=== PATIENT | female | born 1945 | race Caucasian/White ===

== ENCOUNTER 2017-10-19 15:41 | Emergency (ER) | payer MEDICARE, BC ==
[2017-10-19 16:32] VITALS: BP 137/82
--- NOTE | 2017-10-19 16:46 | UC ---
Throat Pain/Nasal Kristofer HPI - HPI Summary HPI Summary: Patient has 6 days of cough coughing so much that now her ribs and her chest wall hurts. He was to be worse at night no fevers. Symptoms seems to have been started as a head cold but is now all settled into her chest - History of Current Complaint Chief Complaint: UCRespiratory Stated Complaint: COUGH,CONGESTION Time Seen by Provider: 10/19/17 16:45 Hx Obtained From: Patient ?: No Onset/Duration: Gradual Onset, Lasting Days - 6 Severity: Moderate Cough: Nonproductive - Allergies/Home Medications Allergies/Adverse Reactions: Allergies Allergy/AdvReac Type Severity Reaction Status Date / Time Penicillins Allergy Swelling Verified 10/19/17 16:32 Sulfa (Sulfonamide Allergy Unknown Verified 10/19/17 16:32 Antibiotics) Reaction Details Home Medications: Home Medications Levocetirizine Dihydrochloride 5 mg PO 10/19/17 [History] Montelukast Sodium TAB* [Singulair 10 MG TAB*] 10 mg PO DAILY 10/19/17 [History Confirmed 10/19/17] Multivit with Calcium,Iron,Min [Multivitamins C-Pucaarp-Esug] 1 each PO [History] PMH/Surg Hx/FS Hx/Imm Hx Previously Healthy: Yes - Enviromental allergies - Surgical History Surgical History: Yes Surgery Procedure, Year, and Place: 2 breast bx, 2 surgical repairs of ankles, lap surgery for . - Family History Known Family History: Positive: None - Social History Occupation: Retired Lives: With Family Alcohol Use: None Substance Use Type: None Smoking Status (MU): Never Smoked Tobacco Review of Systems Constitutional: Negative Skin: Negative Eyes: Negative ENT: Negative Respiratory: Cough Cardiovascular: Chest Pain - chest wall pain with cough Gastrointestinal: Negative Genitourinary: Negative Motor: Negative Neurovascular: Negative Musculoskeletal: Negative Neurological: Negative Psychological: Negative Is Patient Immunocompromised?: No All Other Systems Reviewed And Are Negative: Yes Physical Exam Triage Information Reviewed: Yes Appearance: Well-Appearing, No Pain Distress, Well-Nourished Vital Signs: Initial Vital Signs Temp 96.6 F 10/19/17 16:28 Pulse 95 10/19/17 16:28 Resp 18 10/19/17 16:28 BP 137/82 10/19/17 16:28 Pulse Ox 96 10/19/17 16:28 Vital Signs Reviewed: Yes Eye Exam: Normal Eyes: Positive: Conjunctiva Clear ENT Exam: Normal ENT: Positive: Normal ENT inspection, Hearing grossly normal, Pharynx normal, Nasal congestion, TMs normal, Uvula midline. Negative: Tonsillar swelling, Tonsillar exudate, Trismus, Muffled voice, Hoarse voice, Dental tenderness, Sinus tenderness Dental Exam: Normal Neck exam: Normal Neck: Positive: Supple, Nontender, No Lymphadenopathy Respiratory Exam: Normal Respiratory: Positive: Chest non-tender, Lungs clear, Normal breath sounds, No respiratory distress, No accessory muscle use Cardiovascular Exam: Normal Cardiovascular: Positive: RRR, No Murmur, Pulses Normal, Brisk Capillary Refill Musculoskeletal Exam: Normal Musculoskeletal: Positive: Strength Intact, ROM Intact, No Edema Neurological Exam: Normal Neurological: Positive: Alert, Muscle Tone Normal Psychological Exam: Normal Skin Exam: Normal Diagnostics - Radiology No standard instances Xray Interpretation: Positive (See Comments) Radiology Interpretation Completed By: Radiologist - Patient Name: JUAN VICTORIA Medical Record#: [id number] Ordering Physician: Isa Hairston NP Acct.#: [id number] : 1945 Age: 71 Sex: F Location: [facility] Exam Date: 10/19/171656 ADM Status: [facility] Order Information: CHEST PA & LAT 2 VWS Accession Number: [id number] CPT: 61960 INDICATION: Productive cough. Chest pain. Shortness of breath. COMPARISON: No relevant prior exams available on the [facility] [place]. TECHNIQUE: Dual energy PA and routine lateral views of the chest were obtained. REPORT: Elevated lung volumes. No focal pulmonary lesion, compelling alveolar consolidation, pleural effusion, pneumothorax. The heart, pulmonary vasculature, and mediastinal contours are unremarkable. Unremarkable soft tissue contours and osseous structures. IMPRESSION: Stigmata of obstructive lung disease. No acute pulmonary or cardiac process evident. ___ <Electronically signed by Adolfo Ireland MD in OV> 10/19/17 3426 Dictated By: Adolfo Ireland MD Dictated Date/Time: 10/19/171726 Transcribed Date/Time: 10/19/171722 Copy to: CC:Isa Hairston QUILLER OPERATOR; Renato Sinha MD; Lizandro King MD Imaging - [facility] Imaging - [facility] Imaging - [facility] [address] [facility] [address] [place], [place] [id number] [place] [id number] [place] [id number] ph [phone]) ph [phone] ph ) 1 of 1 Throat Pain/Nasal Course/Dx - Course Assessment/Plan: albuterol flonase zithromax, increase fluids follow with pcp - Differential Dx/Diagnosis Provider Diagnoses: COPD by chest x-ray, Bronchitis Discharge - Sign-Out/Discharge Documenting (check all that apply): Discharge/Admit/Transfer - Discharge Plan Condition: Stable Disposition: HOME Prescriptions: Albuterol HFA INHALER* [Ventolin HFA Inhaler*] 1 - 2 puff INH Q6H PRN #1 mdi PRN Reason: Cough Azithromycin 100 MG/5 ML SUSP* [Zithromax SUSP* 100 MG/5 ML] 500 mg PO DAILY # 75 ml Azithromycin TAB* [Zithromax TAB (Z-CASEY) 250 mg #6 tabs] 2 tab PO .TODAY, THEN 1 DAILY #1 casey Fluticasone NASAL SPRAY 50MCG* [Flonase NASAL SPRAY 50MCG*] 2 spray BOTH NARES DAILY #1 btl Patient Education Materials: Acute Bronchitis (ED), How to Use a Metered-Dose Inhaler and a Spacer (ED) Referrals: Renato Sinha MD [Medical Doctor] - 1 Week - Billing Disposition and Condition Condition: STABLE Disposition: HOME
--- NOTE | 2017-10-19 17:31 | RAD ---
INDICATION: Productive cough. Chest pain. Shortness of breath. COMPARISON: No relevant prior exams available on the [facility] [place] for comparison. TECHNIQUE: Dual energy PA and routine lateral views of the chest were obtained. REPORT: Elevated lung volumes. No focal pulmonary lesion, compelling alveolar consolidation, pleural effusion, pneumothorax. The heart, pulmonary vasculature, and mediastinal contours are unremarkable. Unremarkable soft tissue contours and osseous structures. IMPRESSION: Stigmata of obstructive lung disease. No acute pulmonary or cardiac process evident.
== END 2017-10-19 18:15 | disposition home or self-care (01) ==
LOC: UCEAST 15:41
DX: J44.9 Chronic obstructive pulmonary disease, unspecified (principal); Z88.0 Allergy status to penicillin; Z88.2 Allergy status to sulfonamides
CPT/HCPCS: 71046; 99202; G0463

== ENCOUNTER 2018-09-10 10:33 | Emergency (ER) | payer MEDICARE, BC ==
--- NOTE | 2018-09-10 10:43 | UC ---
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 - History of Current Complaint Stated Complaint: LT WRIST INJURY Time Seen by Provider: 09/10/18 10:40 Hx Obtained From: Patient - Allergies/Home Medications Allergies/Adverse Reactions: Allergies Allergy/AdvReac Type Severity Reaction Status Date / Time Penicillins Allergy Swelling Verified 09/10/18 10:54 Sulfa (Sulfonamide Allergy Unknown Verified 09/10/18 10:54 Antibiotics) Reaction Details PMH/Surg Hx/FS Hx/Imm Hx - Additional Past Medical History Additional PMH: asthma Previously Healthy: Yes - Surgical History Surgical History: Yes Surgery Procedure, Year, and Place: 2 breast bx, 2 surgical repairs of ankles, lap surgery for . - Family History Known Family History: Positive: None - Social History Alcohol Use: None Substance Use Type: None Smoking Status (MU): Never Smoked Tobacco Review of Systems All Other Systems Reviewed And Are Negative: Yes Constitutional: Positive: Negative Skin: Positive: Negative Eyes: Positive: Negative ENT: Positive: Negative Respiratory: Positive: Negative Cardiovascular: Positive: Negative Gastrointestinal: Positive: Negative Genitourinary: Positive: Negative Motor: Positive: Negative Musculoskeletal: Positive: Arthralgia - left wrist, Decreased ROM - left wrist, Other: - left wrist pain, left wrist deformity Neurological: Positive: Negative Psychological: Positive: Negative Is Patient Immunocompromised?: No Physical Exam - Summary Physical Exam Summary: Physical Exam: Const: Appears well. No signs of apparent distress present. Alert and oriented x 3. Musculo: Walks with a normal gait. Head/Face: Atraumatic, normocephalic on inspection. Eyes: EOMI and PERRLA in both eyes. Conjunctivae clear. No discharge noted ENT: Hearing normal Respiratory: Respirations are unlabored. Lungs clear to auscultation bilaterally CVS: Regular rate and Rhythm, S1S2 normal , no murmurs identified. Extremities: Peripheral circulation is grossly normal. Pulses 2+ Abdomen : Soft non tender , nondistended , Bowel sounds present . No guarding , rebound tenderness or rigidity noted. Skin: No lesions or rash located on the upper extremities or on the lower extremities. Neuro: Cranial nerves II to XII intact, motor and sensory intact. DTR Intact bilaterally. Mood is normal. Affect is normal. left Wrist: Insp/Palp: Skin is warm, dry, and intact. obvious deformity of the left wrist / distal forearm is noted upon inspection. ROM: Limited and painful, not tested Strength: not tested Special Tests: not tested Neuro: sensations intact distally neurovascular intact Triage Information Reviewed: Yes Vital Signs Reviewed: Yes Procedures - Procedure Summary Procedure Summary: Closed reduction performed by Dr. Sexton: Time out was performed, hematoma block was done at the left wrist with 10 cc of lidocaine. Once pain control was achieved, left wrist was manually reduced . Post reduction, left wrist was placed in a sugar tong splint and wrapped with Ron wrap by me and Dr. Sexton. Neurovascularly intact post reduction and splint placement. Repeat x-rays were done Diagnostics - Radiology No standard instances Radiology Interpretation Completed By: Radiologist - Xrays of left wrist : There is a transverse comminutedintra-articular fracture of the distal radial metaphysis. There is severe displacement with posterior displacement of the distal fragment one shaft diameter relative to the proximal fragment. In addition the fracture fragments are overriding. IMPRESSION: TRANSVERSE, COMMINUTED, INTRA-ARTICULAR, SEVERELY DISPLACED FRACTURE OF THE DISTAL RADIUS. X-rays repeated after reduction:TRANSVERSE COMMINUTED DISPLACED FRACTURE OF THE DISTAL RADIUS STATUS POST REDUCTION NOTED. CT scan: There is a transverse comminuted intra-articular fracture of the distal radial metaphysis. The main fracture fragment is displaced approximately 1.2 cm posterior. There is also dorsal angulation of the distal fragment relative to the proximal fragment. The major distal fragment appears to impinge or be stuck on the distal posterior aspect of the proximal fragment. The ulna appears intact. No additional fracture is seen. IMPRESSION: COMMINUTED, DISPLACED, ANGULATED, INTRA- ARTICULAR FRACTURE OF THE DISTALRADIUS. Upper Extremity Course/Dx - Course Course Of Treatment: During the visit today, we obtained -rays of the right wrist: There is a transverse comminuted intra-articular fracture of the distal radial metaphysis. There is severe displacement with posterior displacement of the distal fragment one shaft diameter relative to the proximal fragment. In addition the fracture fragments are overriding. IMPRESSION: TRANSVERSE, COMMINUTED, INTRA-ARTICULAR, SEVERELY DISPLACED FRACTURE OF THE DISTAL RADIUS. We discussed the findings . she was given Toradol 30 mg IM and morphine 4 mg IM. I reviewed the x-rays with on-call orthopedics, Dr. Sexton . She reviewed the films and she would see the patient here in urgent care. Dr. Sexton evaluated the patient and planned closed reduction. After hematoma block, she did the closed reduction and patient was placed in a sugar tong splint and a sling. Repeat x-rays:TRANSVERSE COMMINUTED DISPLACED FRACTURE OF THE DISTAL RADIUS STATUS POST REDUCTION NOTED. Dr. Sexton recommended getting a CT scan and plan for schedule her for OR for ORIF on tuesday CT scan of the left wrist:There is a transverse comminuted intra-articular fracture of the distal radial metaphysis. The main fracture fragment is displaced approximately 1.2 cm posterior. There is also dorsal angulation of the distal fragment relative to the proximal fragment. The major distal fragment appears to impinge or be stuck on the distal posterior aspect of the proximal fragment. The ulna appears intact. No additional fracture is seen.IMPRESSION: COMMINUTED, DISPLACED, ANGULATED, INTRA-ARTICULAR FRACTURE OF THE DISTAL RADIUS. Patient expressed understanding . - Differential Dx/Diagnosis Provider Diagnosis: Distal radius fracture, left Discharge - Sign-Out/Discharge Documenting (check all that apply): Patient Departure All imaging exams completed and their final reports reviewed: Yes - Discharge Plan Condition: Stable Disposition: HOME Prescriptions: Morphine 2 MG/ML ORAL.SOLN* [Morphine MG/ML ORAL.SOLN*] 5 mg PO Q6H 3 Days #1 bottle MDD 10 ml Patient Education Materials: Wrist Fracture in Adults (ED), How to Use a Sling (ED), Splint Care (ED) Referrals: Aletha Telles MD [Primary Care Provider] - Heather Sexton MD [Medical Doctor] - 2 Days Additional Instructions: liquid Morphine has been prescribed to the pharmacy . Follow up with ortho as scheduled for surgery . Nothing by mouth after midnight , the night before surgery . Patients blood pressure slightly high in Urgent care today , plan follow up with PCP for better control Return to Urgent care / ER if symptoms get worse. - Billing Disposition and Condition Condition: STABLE Disposition: Home
[2018-09-10] MEDS ORDERED: Ketorolac INJ* 30 MG/ML 1 ML VIAL IM ONE (10:51)
[2018-09-10 10:54] VITALS: BP 150/65
[2018-09-10] MEDS ORDERED: Morphine 10 MG/ML VIAL (1 ml) IM ONE (11:32)
[2018-09-10] MEDS ORDERED: Lidocaine 1%* 5 ML VIAL INJ ONE (12:18)
--- NOTE | 2018-09-11 00:17 | CONS ---
CONSULTATION NOTE: DATE OF CONSULT: 09/10/18 CHIEF COMPLAINT: Left wrist pain. HISTORY OF PRESENT ILLNESS: Nydia is a 72-year-old woman who tripped over something in her garden and landed on her outstretched left wrist. She has an obvious significant deformity of her left wrist. She was brought to the [facility] and had some x-rays, which showed a completely displaced fracture of the distal radius. PHYSICAL EXAMINATION: She is a healthy appearing very pleasant woman, in moderate distress at rest. She has obvious significant deformity of the left wrist with a radial deviation and extension deformity. She has intact neurovascular function. Her skin is intact. She has marked tenderness at the distal radius. IMPRESSION: Left distal radius fracture. PLAN: The patient was given a hematoma block with 10 cc of 1% plain lidocaine, manipulative reduction was then performed, which greatly improved the position of her wrist and she was placed in a sugar-tong splint. Post reduction x-ray showed persistent displacement of the fracture fragments. CT scan was obtained at the [facility] and the patient will be scheduled for surgery for Tuesday for open reduction and internal fixation of the left distal radius. [id number]/CPS #: [id number] MTDD
== END 2018-09-10 14:30 | disposition home or self-care (01) ==
LOC: UCEAST 10:33
DX: S52.572A Other intraarticular fracture of lower end of left radius, initial encounter for closed fracture (principal); W01.0XXA Fall on same level from slipping, tripping and stumbling without subsequent striking against object, initial encounter; Y93.H2 Activity, gardening and landscaping; Y92.096 Garden or yard of other non-institutional residence as the place of occurrence of the external cause; J45.909 Unspecified asthma, uncomplicated; Z88.0 Allergy status to penicillin; Z88.2 Allergy status to sulfonamides
CPT/HCPCS: 25605; 96372; 99212; G0463; J1885; J2270

== ENCOUNTER 2018-09-12 10:54 | Day surgery (SDC) | payer MEDICARE, BC ==
[~2018-09-12 10:54] MED LIST: Buffered Lidocaine 1% SYRIN* 1 ML/SYRINGE INTRADERM ONE; Sodium Citrate/Citric Acid* 15 ML UDC PO ONE
[2018-09-12] MEDS ORDERED: Clindamycin 900 MG IVPREMIX(* 900 MG/50 ML SDV IV ONE (11:10)
[2018-09-12] MEDS ORDERED: Sodium Citrate/Citric Acid* 15 ML UDC ONE (11:10)
[2018-09-12] MEDS: Lactated Ringers 1000 ML Bag* 1,000 ML IV SCH ×2 (11:32→11:33)
[2018-09-12] MEDS ORDERED: Bupivacaine 0.5% SDV PF* 30ML VIAL ONE (13:35)
[2018-09-12] MEDS ORDERED: Propofol* 10 MG/ML 20 ML BTL ONE (13:41)
[2018-09-12] MEDS ORDERED: Lidocaine 2% PF * 5 ML VIAL ONE (13:41)
[2018-09-12] MEDS ORDERED: fentaNYL* 50 MCG/ML 2 ML VIAL (100 MCG VIAL) ONE (13:48)
[2018-09-12] MEDS ORDERED: Dexamethasone IV* 4 MG/ML 1 ML (4 MG) ONE (14:19)
[2018-09-12] MEDS ORDERED: Ketorolac INJ* 30 MG/ML 1 ML VIAL ONE (14:19)
[2018-09-12] MEDS ORDERED: Ondansetron INJ* 2 MG/ML VIAL ONE (14:39)
[2018-09-12] MEDS ORDERED: DiMENhydriNATE IV* 50 MG/ML VIAL IV PUSH PRN (14:41)
[2018-09-12] MEDS ORDERED: fentaNYL* 50 MCG/ML 2 ML VIAL (100 MCG VIAL) IV PRN (14:41)
[2018-09-12] MEDS ORDERED: Naloxone* 0.4 MG/ML 1 ML VIAL IV PRN (14:41)
[2018-09-12 16:02] VITALS: BP 152/72
--- NOTE | 2018-09-13 01:01 | OP ---
DATE OF OPERATION: 09/12/18 [facility] DATE OF : 47 SURGEON: Heather Sexton MD LEAD MATERIAL HANDLER: KISHA Jacobs ANESTHESIA: General. PRE-OP DIAGNOSIS: Comminuted intra-articular fracture of the left distal radius. POST-OP DIAGNOSIS: Comminuted intra-articular fracture of the left distal radius. OPERATIVE PROCEDURE: Open reduction internal fixation of the left distal radius. ESTIMATED BLOOD LOSS: Zero. TOURNIQUET TIME: About 45 minutes. INDICATION FOR PROCEDURE: Nydia is a 72-year-old female who fell in her garden and fractured her left distal radius. Closed reduction was inadequate. She presents for ORIF of the left distal radius. DESCRIPTION OF PROCEDURE: The patient was brought to the operating room, was given a general anesthetic, and placed in a supine position on the operating table with a tourniquet around her left upper arm. The skin of her left upper extremity was prepped and draped in the usual sterile fashion. The upper extremity was exsanguinated and the tourniquet elevated to 250 mmHg. A longitudinal incision was made centered over the FCR tendon. We dissected through the subcutaneous tissue and the tendon sheath sharply with a knife. The FPL muscle and tendon were then retracted and the pronator quadratus was subperiosteally dissected off the distal radius. There were multiple intra- articular fracture fragments in the radiocarpal and distal radial ulnar joint. With traction and manipulation, the fracture fragments were reduced and secured and at least 3 intra-articular fragments were secured with screws from the variable angle Synthes plate set. Three proximal screws were placed and 5 distal screws were placed. The position of the hardware and fracture fragments was checked on the C-arm in the AP and lateral views and found to be satisfactory. The wound was irrigated and the FCR tendon sheath was repaired with 2-0 Vicryl suture. The skin edges were reapproximated with 4-0 nylon suture. The wound was dressed with Xeroform, 4x4, Webril, and a volar splint with an Ron wrap. The patient tolerated the procedure well and was brought to the recovery room in good condition. [id number]/[facility] #: [id number] [facility]
== END 2018-09-12 16:27 | disposition home or self-care (01) ==
LOC: OREAST 10:54
PROVIDERS: ATTEND Orthopaedic Surgery
DX: S52.572A Other intraarticular fracture of lower end of left radius, initial encounter for closed fracture (principal); W19.XXXA Unspecified fall, initial encounter; Y92.096 Garden or yard of other non-institutional residence as the place of occurrence of the external cause; J45.909 Unspecified asthma, uncomplicated
CPT/HCPCS: 76000; A9270-GY; C1713; C1776; J1100; J1885; J2405; J2704; J3010; J3490